=== PATIENT | male | born 1985 | race African-American/Black ===

== ENCOUNTER 2019-11-21 04:23 | Inpatient (IN) | payer MEDICARE, MEDICAID ==
[~2019-11-21] VITALS: Ht 172.7 cm; Wt 78.2 kg
[~2019-11-21 04:23] MED LIST: CILOOO OU; PALI156D IM; PALI234D IM
[2019-11-21] MEDS ORDERED: HALOPERIDOL LACTATE 5 MG/ML VIAL IM ONE (05:15)
[2019-11-21] MEDS ORDERED: LORazepam 2 MG/ML VIAL IM ONE (05:15)
[2019-11-21] MEDS ORDERED: DiphenhydrAMINE HCL 50 MG/ML VIAL IM ONE (05:15)
[2019-11-21 09:04] LABS: BASOPHILS % (AUTO) 1.4 % (0.0-2.0); EOSINOPHILS % (AUTO) 1.8 % (1.0-6.0); HEMATOCRIT 45.3 % (41-53); HEMOGLOBIN 15.5 g/dL (13.5-17.5); LYMPHOCYTES # (AUTO) 2.9 K/uL (1.0-4.8); LYMPHOCYTES % (AUTO) 39.8 % (22.0-44.0); MEAN CORPUSCULAR HEMOGLOBIN 28.8 pg (26.0-34.0); MEAN CORPUSCULAR HGB CONC 34.2 G/dL (31.0-37.0); MEAN CORPUSCULAR VOLUME 84 fL (80-100); MONOCYTES # (AUTO) 0.7 K/uL (0.1-1.0); MONOCYTES % (AUTO) 8.9 % (2.0-9.0); NEUTROPHILS # (AUTO) 3.6 K/uL (1.8-7.7); NEUTROPHILS % (AUTO) 48.1 % (40.0-70.0); PLATELET COUNT (AUTO) 390 K/uL (150-450); RED BLOOD CELL COUNT(AUTO) 5.37 MIL/uL (4.50-5.90); RED CELL DISTRIBUTION WIDTH 13.4 % (11.5-14.5)
[2019-11-21 09:14] LABS: ANION GAP 6 mmol/L (8-16); CALCIUM, TOTAL 9.1 mg/dL (8.8-10.5); CARBON DIOXIDE 30 mmol/L (22-29); CHLORIDE 105 mmol/L (98-107); CREATININE 1.16 mg/dL (0.60-1.30); GLOMERULAR FILTR. RATE CALC > 60 mL/min (>60); GLUCOSE,RANDOM 89 mg/dL (70-110); SODIUM SERUM 141 mmol/L (136-145); UREA NITROGEN, BLOOD 7 mg/dL (7-18)
[2019-11-21 09:18] LABS: AMPHET/METH SCREEN,URINE NEGATIVE (NEGATIVE); BARBITURATE SCREEN, URINE NEGATIVE (NEGATIVE); BENZODIAZEPINES SCREEN,URINE NEGATIVE (NEGATIVE); CANNABINOID SCREEN,URINE NEGATIVE (NEGATIVE); COCAINE SCREEN,URINE NEGATIVE (NEGATIVE); METHADONE SCREEN, URINE NEGATIVE (NEGATIVE); OPIATE SCREEN,URINE NEGATIVE (NEGATIVE)
[2019-11-21 09:20] LABS: ALANINE AMINOTRANSFERASE 26 U/L (12-78); ALBUMIN 3.9 g/dL (3.4-5.0); ALKALINE PHOSPHATASE 75 U/L (46-116); ASPARTATE AMINOTRANSFERASE 28 U/L (15-37); BILIRUBIN,TOTAL 1.2 mg/dL (0.1-1.0); TOTAL PROTEIN, SERUM 7.6 g/dL (6.4-8.2)
[2019-11-21 09:23] LABS: PHENCYCLIDINE SCREEN,URINE NEGATIVE (NEGATIVE)
[2019-11-21] MEDS ORDERED: PALIPERIDONE PALMITATE 156 MG/ML SYRINGE IM ONE (09:30)
[2019-11-21] MEDS ORDERED: HALOPERIDOL 5 MG TABLET PO PRN (09:30)
[2019-11-21] MEDS ORDERED: ZOLPIDEM TARTRATE 10 MG TABLET PO PRN (09:30)
[2019-11-21 13:07] VITALS: BP 99/56
[2019-11-21] MEDS ORDERED: ALBUTEROL SULFATE HFA 90 MCG/PUFF 8 GM INHALER IH PRN (13:30)
[2019-11-21] MEDS ORDERED: NICOTINE 14 MG/24 HOUR PATCH TD PRN (13:30)
[2019-11-21] MEDS ORDERED: CloNIDine HCL 0.1 MG TABLET PO PRN (13:30)
[2019-11-21] MEDS ORDERED: IBUPROFEN 400 MG TABLET PO PRN (13:30)
[2019-11-21] MEDS ORDERED: DOCUSATE SODIUM 100 MG CAPSULE PO PRN (13:30)
[2019-11-21] MEDS ORDERED: MAGNESIUM HYDROXIDE SUSPENSION 30 ML UDCUP PO PRN (13:30)
[2019-11-21] MEDS ORDERED: GuaiFENesin/D-METHORPHAN [SUGAR-FREE] 200-20MG/10 ML SYRUP UDCUP PO PRN (13:30)
[2019-11-21] MEDS ORDERED: ONDANSETRON HCL 4 MG TABLET PO PRN (13:30)
[2019-11-21] MEDS ORDERED: ACETAMINOPHEN 325 MG TABLET PO PRN (13:30)
[2019-11-21] MEDS ORDERED: LOPERAMIDE HCL 2 MG CAPSULE PO PRN (13:30)
[2019-11-21] MEDS ORDERED: MAG HYDROX/AL HYDROX/SIMETH ES 30 ML SUSPENSION UDCUP PO PRN (13:30)
[2019-11-21] MEDS ORDERED: INFLUENZA VIRUS VACCINE QVS 2019-20 (3YR+)/PF 60 MCG/0.5 ML SYRINGE IM ONE (14:00)
[2019-11-21 16:09] VITALS: BP 115/98
[2019-11-21] MEDS: RisperiDONE 3 MG TABLET PO SCH (16:13)
[2019-11-21] MEDS: PETROLATUM,WHITE 28 GM JELLY TP PRN (16:14)
[2019-11-21] MEDS: LORazepam 2 MG TABLET PO PRN (16:36)
[2019-11-22] MEDS: LORazepam 2 MG TABLET PO PRN (02:40)
[2019-11-22 04:47] VITALS: BP 110/82
[2019-11-22] MEDS: RisperiDONE 3 MG TABLET PO SCH ×2 (08:19→16:09)
[2019-11-22 09:08] VITALS: BP 115/47
[2019-11-22] MEDS: PETROLATUM,WHITE 28 GM JELLY TP PRN (17:34)
[2019-11-22 17:55] VITALS: BP 115/81
[2019-11-23 06:01] VITALS: BP 114/81
[2019-11-23 08:00] VITALS: BP 131/85
[2019-11-23] MEDS: RisperiDONE 3 MG TABLET PO SCH ×2 (08:51→16:39)
[2019-11-23] MEDS: PETROLATUM,WHITE 28 GM JELLY TP PRN ×2 (08:54→16:42)
[2019-11-23 16:43] VITALS: BP 118/57
[2019-11-24 08:00] VITALS: BP 132/80
[2019-11-24] MEDS: RisperiDONE 3 MG TABLET PO SCH (08:22)
[2019-11-24] MEDS: PETROLATUM,WHITE 28 GM JELLY TP PRN (08:23)
[2019-11-24] MEDS ORDERED: RISP3 PO (11:26)
== END 2019-11-24 15:40 | disposition home or self-care (01) | DRG 885 ==
LOC: EMS 04:23 → 3EI 10:58 → UNDOADMIN 10:58
PROVIDERS: ADMIT Psychiatry & Neurology Psychiatry; ATTEND Psychiatry & Neurology Psychiatry
DX: F20.0 Paranoid schizophrenia (principal); E05.90 Thyrotoxicosis, unspecified without thyrotoxic crisis or storm; F10.10 Alcohol abuse, uncomplicated; F17.200 Nicotine dependence, unspecified, uncomplicated; F31.9 Bipolar disorder, unspecified; N18.9 Chronic kidney disease, unspecified; F15.10 Other stimulant abuse, uncomplicated
CPT/HCPCS: 87081; G0480; J1200; J1630; J2060

== ENCOUNTER 2021-10-12 12:36 | Inpatient (IN) | payer MEDICARE, MEDICAID ==
[~2021-10-12] VITALS: Ht 170.2 cm; Wt 79.1 kg
[~2021-10-12 12:36] MED LIST changes: -CILOOO OU; -PALI156D IM; -PALI234D IM; +RISP3TAB35 PO
[2021-10-12 13:51] LABS: BASOPHILS % (AUTO) 1.3 % (0.0-2.0); HEMATOCRIT 41.9 % (41-53); HEMOGLOBIN 14.7 g/dL (13.5-17.5); LYMPHOCYTES # (AUTO) 2.1 K/uL (1.0-4.8); LYMPHOCYTES % (AUTO) 32.1 % (22.0-44.0); MEAN CORPUSCULAR HEMOGLOBIN 29.1 pg (26.0-34.0); MEAN CORPUSCULAR HGB CONC 35.2 G/dL (31.0-37.0); MEAN CORPUSCULAR VOLUME 83 fL (80-100); MONOCYTES # (AUTO) 0.5 K/uL (0.1-1.0); NEUTROPHILS # (AUTO) 3.7 K/uL (1.8-7.7); NEUTROPHILS % (AUTO) 56.6 % (40.0-70.0); PLATELET COUNT (AUTO) 297 K/uL (150-450); RED BLOOD CELL COUNT(AUTO) 5.08 MIL/uL (4.50-5.90); RED CELL DISTRIBUTION WIDTH 13.8 % (11.5-14.5)
[2021-10-12 14:00] LABS: ANION GAP 7 mmol/L (8-16); CALCIUM, TOTAL 8.8 mg/dL (8.8-10.5); CARBON DIOXIDE 28 mmol/L (22-29); CHLORIDE 105 mmol/L (98-107); CREATININE 0.92 mg/dL (0.60-1.30); GLOMERULAR FILTR. RATE CALC > 60 mL/min (>60); GLUCOSE,RANDOM 122 mg/dL (70-110); POTASSIUM 3.6 mmol/L (3.5-5.1); SODIUM SERUM 140 mmol/L (136-145); UREA NITROGEN, BLOOD 8 mg/dL (7-18)
[2021-10-12 14:06] LABS: ALANINE AMINOTRANSFERASE 17 U/L (12-78); ALBUMIN 3.5 g/dL (3.4-5.0); ALKALINE PHOSPHATASE 72 U/L (46-116); ASPARTATE AMINOTRANSFERASE 13 U/L (15-37); BILIRUBIN,TOTAL 0.6 mg/dL (0.1-1.0); TOTAL PROTEIN, SERUM 7.1 g/dL (6.4-8.2)
[2021-10-12 14:08] LABS: COVID AG,FIA SOURCE NASOPHARYNGEAL
[2021-10-12] MEDS ORDERED: ZOLPIDEM TARTRATE 10 MG TABLET PO PRN (14:15)
[2021-10-12 15:16] LABS: APPEARANCE,URINE CLEAR (CLEAR); BILIRUBIN,URINE NEGATIVE (NEGATIVE); GLUCOSE, URINE (UA) NEGATIVE (NEGATIVE); KETONES,URINE NEGATIVE (NEGATIVE); LEUKOCYTE ESTERASE ,URINE NEGATIVE (NEGATIVE); NITRATE,URINE NEGATIVE (NEGATIVE); OCCULT BLOOD,URINE NEGATIVE (NEGATIVE); PROTEIN,URINE NEGATIVE (NEGATIVE); SPECIFIC GRAVITIY, URINE 1.011 (1.003-1.030); UROBILINOGEN,URINE <=1.0 mg/dL (<=1.0)
[2021-10-12 15:23] LABS: AMPHET/METH SCREEN,URINE NEGATIVE (NEGATIVE); BARBITURATE SCREEN, URINE NEGATIVE (NEGATIVE); BENZODIAZEPINES SCREEN,URINE NEGATIVE (NEGATIVE); CANNABINOID SCREEN,URINE NEGATIVE (NEGATIVE); COCAINE SCREEN,URINE NEGATIVE (NEGATIVE); METHADONE SCREEN, URINE NEGATIVE (NEGATIVE); OPIATE SCREEN,URINE NEGATIVE (NEGATIVE)
[2021-10-12 15:25] LABS: PHENCYCLIDINE SCREEN,URINE NEGATIVE (NEGATIVE)
[2021-10-12] MEDS: HALOPERIDOL 5 MG TABLET PO PRN (16:07)
[2021-10-12] MEDS: LORazepam 2 MG TABLET PO PRN (16:07)
[2021-10-12] MEDS ORDERED: INFLUENZA VIRUS VACCINE QVS 2021-22 (6MO+)/PF 60 MCG/0.5 ML SYRINGE IM. ONE (17:15)
[2021-10-12 17:17] VITALS: BP 140/83
[2021-10-13] MEDS ORDERED: PETROLATUM,WHITE 28 GM JELLY TP PRN (08:45)
[2021-10-13] MEDS ORDERED: IBUPROFEN 400 MG TABLET PO PRN (08:45)
[2021-10-13] MEDS ORDERED: GuaiFENesin/D-METHORPHAN [SUGAR-FREE] 200-20MG/10 ML SYRUP UDCUP PO PRN (08:45)
[2021-10-13] MEDS ORDERED: MAGNESIUM HYDROXIDE SUSPENSION 30 ML UDCUP PO PRN (08:45)
[2021-10-13] MEDS ORDERED: MAG HYDROX/AL HYDROX/SIMETH ES 30 ML SUSPENSION UDCUP PO PRN (08:45)
[2021-10-13] MEDS ORDERED: NICOTINE 14 MG/24 HOUR PATCH TD PRN (08:45)
[2021-10-13] MEDS ORDERED: DOCUSATE SODIUM 100 MG CAPSULE PO PRN (08:45)
[2021-10-13] MEDS ORDERED: ALBUTEROL SULFATE HFA 90 MCG/PUFF 8 GM INHALER IH PRN (08:45)
[2021-10-13] MEDS ORDERED: ONDANSETRON HCL 4 MG TABLET PO PRN (08:45)
[2021-10-13] MEDS ORDERED: LOPERAMIDE HCL 2 MG CAPSULE PO PRN (08:45)
[2021-10-13] MEDS ORDERED: CloNIDine HCL 0.1 MG TABLET PO PRN (08:45)
[2021-10-13] MEDS ORDERED: ACETAMINOPHEN 325 MG TABLET PO PRN (08:45)
[2021-10-13 09:42] VITALS: BP 129/88
[2021-10-13 11:05] LABS: FREE T4 (FREE THYROXINE) 1.01 ng/dL (0.76-1.46); THYROID STIMULATING HORMONE 1.1 uIU/mL (0.36-3.74)
[2021-10-13] MEDS: RisperiDONE 3 MG TABLET PO SCH (16:00)
[2021-10-13] MEDS: DIVALPROEX SODIUM 500 MG DR TABLET PO SCH (16:00)
[2021-10-13] MEDS: LORazepam 2 MG TABLET PO PRN (16:38)
[2021-10-13] MEDS: HALOPERIDOL 5 MG TABLET PO PRN (16:38)
[2021-10-13 19:46] VITALS: BP 100/69
[2021-10-13] MEDS: RisperiDONE 1 MG TABLET PO SCH (20:27)
[2021-10-14 08:32] VITALS: BP 107/63
[2021-10-14] MEDS: DIVALPROEX SODIUM 500 MG DR TABLET PO SCH ×2 (08:40→16:16)
[2021-10-14] MEDS: RisperiDONE 3 MG TABLET PO SCH ×2 (08:40→16:16)
[2021-10-14] MEDS: LORazepam 2 MG TABLET PO PRN (16:16)
[2021-10-14] MEDS: HALOPERIDOL 5 MG TABLET PO PRN (16:17)
[2021-10-14 16:40] VITALS: BP 104/75
[2021-10-14] MEDS: RisperiDONE 1 MG TABLET PO SCH (21:13)
[2021-10-15 08:26] VITALS: BP 129/83
[2021-10-15] MEDS: LORazepam 2 MG TABLET PO PRN ×2 (10:05→20:26)
[2021-10-15] MEDS: DIVALPROEX SODIUM 500 MG DR TABLET PO SCH ×2 (10:05→16:06)
[2021-10-15] MEDS: RisperiDONE 3 MG TABLET PO SCH ×2 (10:05→16:06)
[2021-10-15] MEDS: HALOPERIDOL 5 MG TABLET PO PRN ×2 (10:05→20:25)
[2021-10-15 16:59] VITALS: BP 105/78
[2021-10-15 20:25] VITALS: BP 121/79
[2021-10-15] MEDS: RisperiDONE 1 MG TABLET PO SCH (20:26)
[2021-10-16 08:00] VITALS: BP 133/87
[2021-10-16] MEDS: DIVALPROEX SODIUM 500 MG DR TABLET PO SCH ×2 (09:54→17:06)
[2021-10-16] MEDS: RisperiDONE 3 MG TABLET PO SCH ×2 (09:54→17:06)
[2021-10-16] MEDS: HALOPERIDOL 5 MG TABLET PO PRN (15:51)
[2021-10-16 16:35] VITALS: BP 107/65
[2021-10-16] MEDS: LORazepam 2 MG TABLET PO PRN (18:42)
[2021-10-16] MEDS: RisperiDONE 1 MG TABLET PO SCH (20:43)
[2021-10-17] MEDS: RisperiDONE 3 MG TABLET PO SCH (08:46)
[2021-10-17] MEDS: DIVALPROEX SODIUM 500 MG DR TABLET PO SCH (08:46)
[2021-10-17 11:06] VITALS: BP 110/80
[2021-10-17] MEDS ORDERED: RISP3TAB63 PO (11:38)
[2021-10-17] MEDS ORDERED: RISP1TAB98 PO (11:38)
[2021-10-17] MEDS ORDERED: DIVA-112 PO ×2 (11:38→13:02)
[2021-10-17] MEDS ORDERED: RISP4TAB31 PO ×2 (13:02→13:03)
== END 2021-10-17 14:45 | disposition left against medical advice (07) | DRG 885 ==
LOC: EMS 12:45 → 3EC 15:15
PROVIDERS: ADMIT Psychiatry & Neurology Child & Adolescent Psychiatry; ATTEND Psychiatry & Neurology Child & Adolescent Psychiatry
DX: F20.9 Schizophrenia, unspecified (principal); N18.9 Chronic kidney disease, unspecified; F31.9 Bipolar disorder, unspecified; E03.9 Hypothyroidism, unspecified; F41.9 Anxiety disorder, unspecified; Z20.822 Contact with and (suspected) exposure to COVID-19; Z87.891 Personal history of nicotine dependence; Z79.899 Other long term (current) drug therapy
CPT/HCPCS: 80053; 81003; 84439; 84443; 85025; 99285; G0480

== ENCOUNTER 2024-04-01 13:46 | Inpatient (IN) | payer MEDICARE, MEDICAID ==
[~2024-04-01] VITALS: Ht 175.3 cm; Wt 75.0 kg
[~2024-04-01 13:46] MED LIST changes: +DIVA-112 PO; +RISP-31 PO; -RISP3TAB35 PO; +RISP3TAB77 PO; +RISP4TAB31 PO
[2024-04-01 14:33] LABS: COVID AG,FIA SOURCE NASAL SWAB
[2024-04-01 14:48] LABS: BASOPHILS % (AUTO) 0.7 % (0.0-2.0); EOSINOPHILS % (AUTO) 1.3 % (1.0-6.0); LYMPHOCYTES # (AUTO) 2.5 K/uL (1.0-4.8); MEAN CORPUSCULAR HEMOGLOBIN 29.4 pg (26.0-34.0); MEAN CORPUSCULAR HGB CONC 34.2 G/dL (31.0-37.0); MEAN CORPUSCULAR VOLUME 86 fL (80-100); MONOCYTES # (AUTO) 0.6 K/uL (0.1-1.0); MONOCYTES % (AUTO) 7.1 % (2.0-9.0); NEUTROPHILS # (AUTO) 4.7 K/uL (1.8-7.7); NEUTROPHILS % (AUTO) 58.9 % (40.0-70.0); PLATELET COUNT (AUTO) 306 K/uL (150-450); RED BLOOD CELL COUNT(AUTO) 5.12 MIL/uL (4.50-5.90); RED CELL DISTRIBUTION WIDTH 15.1 % (11.5-14.5); WHITE BLOOD COUNT (AUTO) 7.9 K/uL (4.5-11.0)
[2024-04-01 14:53] LABS: ANION GAP 7 mmol/L (8-16); CALCIUM, TOTAL 8.9 mg/dL (8.8-10.5); CARBON DIOXIDE 28 mmol/L (22-29); CHLORIDE 105 mmol/L (98-107); CREATININE 1.04 mg/dL (0.60-1.30); GLOMERULAR FILTR. RATE CALC > 60 mL/min (>60); GLUCOSE,RANDOM 94 mg/dL (70-110); POTASSIUM 3.7 mmol/L (3.5-5.1); SODIUM SERUM 140 mmol/L (136-145); UREA NITROGEN, BLOOD 10 mg/dL (7-18)
[2024-04-01 14:55] LABS: SARS-COV2 (COVID) ANTIGEN,FIA Negative (Negative)
[2024-04-01 15:08] LABS: ALCOHOL, BLOOD (SERUM) < 3 mg/dL (0-10)
[2024-04-01 16:43] LABS: ALCOHOL, URINE DRUG SCREEN NEGATIVE (NEGATIVE); AMPHET/METH SCREEN,URINE NEGATIVE (NEGATIVE); BARBITURATE SCREEN, URINE POSITIVE (NEGATIVE); BENZODIAZEPINES SCREEN,URINE NEGATIVE (NEGATIVE); CANNABINOID SCREEN,URINE NEGATIVE (NEGATIVE); COCAINE SCREEN,URINE NEGATIVE (NEGATIVE); METHADONE SCREEN, URINE NEGATIVE (NEGATIVE); OPIATE SCREEN,URINE NEGATIVE (NEGATIVE); PHENCYCLIDINE SCREEN,URINE NEGATIVE (NEGATIVE)
[2024-04-01] MEDS ORDERED: DIPH50CA35 PO (16:53)
[2024-04-01] MEDS ORDERED: HALO100V36 IM (17:00)
[2024-04-01] MEDS ORDERED: VALB40CA2 PO (17:01)
[2024-04-01] MEDS: LORazepam 2 MG/ML VIAL IM ONE (19:38)
[2024-04-01] MEDS: DiphenhydrAMINE HCL 50 MG/ML VIAL IM ONE (19:38)
[2024-04-01] MEDS: HALOPERIDOL LACTATE 5 MG/ML VIAL IM ONE (19:38)
[2024-04-01 23:00] VITALS: BP 115/77; PULSE 91; RESP 18; TEMP 97.6; O2SAT 99
[2024-04-02 10:49] VITALS: BP 118/76; PULSE 103; RESP 17; TEMP 97.2; O2SAT 99
[2024-04-02] MEDS ORDERED: OLAN10TA74 PO (12:35)
[2024-04-02] MEDS ORDERED: ALBUTEROL SULFATE HFA 90 MCG/PUFF 8 GM INHALER IH PRN (14:45)
[2024-04-02] MEDS ORDERED: GuaiFENesin/D-METHORPHAN [SUGAR-FREE] 200-20MG/10 ML SYRUP UDCUP PO PRN (14:45)
[2024-04-02] MEDS ORDERED: LOPERAMIDE HCL 2 MG CAPSULE PO PRN (14:45)
[2024-04-02] MEDS ORDERED: MAG HYDROX/ALUMINUM HYD/SIMETH ES 30 ML SUSPENSION UDCUP PO PRN (14:45)
[2024-04-02] MEDS ORDERED: IBUPROFEN 400 MG TABLET PO PRN (14:45)
[2024-04-02] MEDS ORDERED: PETROLATUM,WHITE 28 GM JELLY TP PRN (14:45)
[2024-04-02] MEDS ORDERED: DOCUSATE SODIUM 100 MG CAPSULE PO PRN (14:45)
[2024-04-02] MEDS ORDERED: CloNIDine HCL 0.1 MG TABLET PO PRN (14:45)
[2024-04-02] MEDS ORDERED: ONDANSETRON 4 MG TABLET PO PRN (14:45)
[2024-04-02] MEDS ORDERED: NICOTINE 14 MG/24 HOUR PATCH TD PRN (14:45)
[2024-04-02] MEDS ORDERED: ACETAMINOPHEN 325 MG TABLET PO PRN (14:45)
[2024-04-02] MEDS ORDERED: MAGNESIUM HYDROXIDE SUSPENSION 30 ML UDCUP PO PRN (14:45)
[2024-04-02] MEDS: OLANZapine 10 MG TABLET PO SCH (21:01)
[2024-04-02] MEDS: ZOLPIDEM TARTRATE 10 MG TABLET PO PRN (21:02)
[2024-04-02 23:27] VITALS: BP 127/68; PULSE 100; RESP 18; TEMP 97.9; O2SAT 99
[2024-04-03 08:21] LABS: HEMOGLOBIN A1C 5.4 % (3.8-5.6)
[2024-04-03 08:46] LABS: THYROID STIMULATING HORMONE 1.44 uIU/mL (0.36-3.74)
[2024-04-03 09:08] VITALS: BP 144/55; PULSE 89; RESP 18; TEMP 98; O2SAT 100
[2024-04-03 09:39] LABS: CHOL/HDL RATIO 2.4 (4.2-7.3)
[2024-04-03] MEDS: HALOPERIDOL 5 MG TABLET PO PRN (11:24)
[2024-04-03] MEDS: LORazepam 2 MG TABLET PO PRN (11:24)
[2024-04-03 20:58] VITALS: BP 110/69; PULSE 88; RESP 18; TEMP 96.5; O2SAT 98
[2024-04-04 08:50] VITALS: BP 118/69; PULSE 79; RESP 18; TEMP 98; O2SAT 98
[2024-04-04 22:56] VITALS: BP 100/63; PULSE 63; RESP 18; TEMP 98.3; O2SAT 97
[2024-04-05 10:27] VITALS: BP 96/58; PULSE 90; RESP 18; TEMP 98.1; O2SAT 98
[2024-04-05 22:06] VITALS: BP 106/59; PULSE 90; RESP 18; TEMP 97.8; O2SAT 99
[2024-04-06 08:46] VITALS: BP 112/61; PULSE 88; RESP 18; O2SAT 98
[2024-04-06 21:30] VITALS: BP 113/67; PULSE 74; RESP 17; TEMP 98.3; O2SAT 97
[2024-04-07 08:30] VITALS: BP 101/65; PULSE 82; RESP 18; TEMP 98.2; O2SAT 98
[2024-04-07 20:26] VITALS: BP 111/71; PULSE 75; RESP 18; TEMP 98.4; O2SAT 98
[2024-04-08 08:00] VITALS: BP 120/77; PULSE 72; RESP 17; TEMP 97.3; O2SAT 98
[2024-04-08 22:01] VITALS: BP 119/72; PULSE 74; RESP 18; TEMP 97.3; O2SAT 100
[2024-04-09 09:17] VITALS: BP 136/79; PULSE 100; RESP 17; TEMP 98; O2SAT 96
[2024-04-09 20:43] VITALS: BP 117/81; PULSE 79; RESP 18; O2SAT 98
[2024-04-10 09:34] VITALS: BP 117/82; PULSE 71; RESP 18; TEMP 97.3; O2SAT 97
[2024-04-10 20:57] VITALS: BP 105/68; PULSE 74; RESP 18; TEMP 97.2; O2SAT 95
[2024-04-11 08:45] VITALS: BP 109/76; PULSE 80; RESP 18; O2SAT 98
[2024-04-11 20:26] VITALS: BP 112/66; PULSE 68; RESP 19; TEMP 97.8; O2SAT 98
[2024-04-12 09:24] VITALS: BP 128/75; PULSE 81; RESP 17; TEMP 97.9; O2SAT 97
[2024-04-12 20:42] VITALS: BP 111/70; PULSE 96; RESP 18; TEMP 97.3; O2SAT 98
[2024-04-13 08:35] VITALS: BP 124/84; PULSE 101; RESP 18; TEMP 98.1; O2SAT 97
[2024-04-13 20:15] VITALS: BP 112/70; PULSE 105; RESP 16; TEMP 97.5; O2SAT 99
[2024-04-14 09:58] VITALS: BP 111/63; PULSE 69; RESP 17; TEMP 97.6; O2SAT 98
[2024-04-14] MEDS ORDERED: OLAN10TA74 PO (10:11)
== END 2024-04-14 13:20 | disposition home or self-care (01) | DRG 885 ==
LOC: EMS 13:55 → 3EC 22:04 → 3EI 04-05 00:21 → 3EX 04-06 16:00
PROVIDERS: ADMIT Psychiatry & Neurology Psychiatry; ATTEND Psychiatry & Neurology Psychiatry
PROC: GZ52ZZZ Individual Psychotherapy, Cognitive (ICD-10-PCS; principal; 2024-04-02)
DX: F20.0 Paranoid schizophrenia (principal); N18.9 Chronic kidney disease, unspecified; F79 Unspecified intellectual disabilities; E03.9 Hypothyroidism, unspecified; Z20.822 Contact with and (suspected) exposure to COVID-19; F41.9 Anxiety disorder, unspecified; I12.9 Hypertensive chronic kidney disease with stage 1 through stage 4 chronic kidney disease, or unspecified chronic kidney disease; E05.90 Thyrotoxicosis, unspecified without thyrotoxic crisis or storm; Z91.198 Patient's noncompliance with other medical treatment and regimen for other reason
CPT/HCPCS: 80048; 80061; 80307; 83036; 84443; 85025; 99285; G0378; G0480; J1200; J1630; J2060